=== PATIENT | female | born 1990 ===

== ENCOUNTER 2022-01-03 15:47 | Outpatient (CLI) | payer OTHER, SELFPAY ==
[2022-01-03 21:34] LABS: Free T4 Free Thyroxine* 1.05 ng/dL (0.70-1.85)
== END 2022-01-03 15:48 | disposition home or self-care (01) ==
PROVIDERS: PCP Family Medicine; Visit Provider Family Medicine
DX: E03.9 Hypothyroidism, unspecified (principal)
CPT/HCPCS: 84439; 84443

== ENCOUNTER 2022-07-18 10:21 | Outpatient (CLI) | payer OTHER, SELFPAY ==
[2022-07-18 14:38] LABS: Chlamydia DNA Amplified* NOT DETECTED (No Detected); GC DNA Amplified* NOT DETECTED (No Detected)
== END 2022-07-18 10:22 | disposition home or self-care (01) ==
PROVIDERS: PCP Family Medicine; Visit Provider Registered Nurse
DX: N89.8 Other specified noninflammatory disorders of vagina (principal); R30.0 Dysuria
CPT/HCPCS: 87086; 87210; 87491; 87591

== ENCOUNTER 2022-12-24 08:06 | Outpatient (CLI) | payer SELFPAY | END 2022-12-24 08:07 | disposition home or self-care (01) | LOC: NFLDREF 12-26 13:01 | PROVIDERS: PCP Family Medicine; Referring Provider Family Medicine; Visit Provider Family Medicine | DX: Z00.00 Encounter for general adult medical examination without abnormal findings (principal); E03.9 Hypothyroidism, unspecified; D50.9 Iron deficiency anemia, unspecified; F32.A Depression, unspecified | CPT/HCPCS: 80053; 80061; 84443 ==

== ENCOUNTER 2023-10-01 10:55 | Emergency (ER) | payer OTHER, SELFPAY ==
[2023-10-01 11:21] VITALS: BP 105/65; PULSE 115; RESP 18; TEMP 38.1; O2SAT 98; BMI 26.5
--- NOTE | 2023-10-01 12:45 | ED_ITS ---
HPI - General Adult General Chief complaint: Fever Stated complaint: fever,headache,bodyaches Time Seen by Provider: 10/01/23 11:20 History of Present Illness HPI narrative: headache, fever and body aches x 3 days. last ibuprofen at 0900 33-year-old woman presenting to the emergency department with concern of fever body aches and headache. Sore right neck in particular. Little sore throat. Does recall in later conversation that a friends kid had mono. She was self has been well for about 3 days. She has had a waxing waning fever; saying that it always comes back. Not complaining of abdominal pain and denies dysuria but has had some middle back pain bilaterally along with other body aches. Last took acetaminophen and says that it did not help her feelings. Related Data Previous Rx's Medication Instructions Recorded levothyroxine 100 mcg tablet See Rx Instructions .Route 12/27/22 .COMPLEX #90 tabs amoxicillin 875 mg tablet 875 mg PO BID #16 tabs 10/01/23 prednisone 20 mg tablet 40 mg (2 x 20 mg) PO DAILY #10 tabs 10/01/23 Allergies Allergy/AdvReac Type Severity Reaction Status Date / Time No Known Allergies Allergy Verified 10/01/23 15:40 Review of Systems Status of ROS: Reports: 6 or more systems reviewed and unremarkable except as noted in History and below PFSH PFSH Family History Mother Thyroid disease Maternal Grandmother Thyroid disease Social History Narrative: IUD (intrauterine device) in place- paragard Smoking Status: Never smoker Do you use any of these nicotine containing products: None Exam Narrative: Exam Narrative: Pleasant. NAD. Sounds a little congested in the nasopharynx. Does appear tired. Is swallowing without apparent difficulty. I soreness in the right neck with mild cervical lymphadenopathy. Oropharynx is moist. Mildly enlarged right versus left tonsils with whitish exudate. Moderately pink but not brightly or deeply erythematous. There is no stridor. Lungs are clear. Is sore to palpation of the back musculature in the mid back bilaterally. Not with flank/percussion tenderness. Skin is warm and dry without rash. Const: Vital Signs, click to edit/add: Vital Signs - 24 hr 10/01/23 11:21 10/01/23 13:38 Temperature 100.6 F H 100.6 F H Pulse Rate [Pulse Oximeter] 88 Pulse Rate [Right Pulse Oximeter] 115 H Respiratory Rate 18 16 Blood Pressure [Le ft Arm] 105/65 Blood Pressure [Ri ght Upper Arm] 105/65 Pulse Oximetry 98 96 Oxygen Delivery Me thod Room Air Room Air Documenting provider has reviewed patient's vital signs: yes Course Vital Signs Vital signs: Initial Vital Signs Temperature 100.6 F H 10/01/23 11:21 Temperature Source Temporal Artery Scan 10/01/23 11:21 Pulse Rate 115 H 10/01/23 11:21 Respiratory Rate 18 10/01/23 11:21 Blood Pressure 105/65 10/01/23 11:21 Blood Pressure Mean 78 10/01/23 11:21 Blood Pressure Position Sitting 10/01/23 11:21 Pulse Oximetry 98 10/01/23 11:21 Oxygen Delivery Method Room Air 10/01/23 11:21 Vital Signs Temperature 100.6 F H 10/01/23 11:21 Pulse Rate 115 H 10/01/23 11:21 Respiratory Rate 18 10/01/23 11:21 Blood Pressure 105/65 10/01/23 11:21 Pulse Oximetry 98 10/01/23 11:21 Oxygen Delivery Method Room Air 10/01/23 11:21 Temperature 100.6 F H 10/01/23 13:38 Pulse Rate 88 10/01/23 13:38 Respiratory Rate 16 10/01/23 13:38 Blood Pressure 105/65 10/01/23 13:38 Pulse Oximetry 96 10/01/23 13:38 Oxygen Delivery Method Room Air 10/01/23 13:38 Medications Administered Medications: Discontinued Medications Generic Name Dose Route Start Last Admin Trade Name Freq PRN Reason Stop Dose Admin Acetaminophen 650 mg 10/01/23 13:04 10/01/23 13:30 Acetaminophen 325 Mg Tablet PO 10/01/23 13:05 650 mg ONCE ONE Administration Sodium Chloride 1,000 mls @ 1,000 mls/hr 10/01/23 14:25 10/01/23 14:59 0.9 % Sodium Chloride 1000 Ml IV 10/01/23 15:24 1,000 mls/hr .Q1H ONE Administration Ibuprofen 400 mg 10/01/23 13:04 10/01/23 13:31 Ibuprofen 200 Mg Tablet PO 10/01/23 13:05 400 mg ONCE ONE Administration Ketorolac Tromethamine 15 mg 10/01/23 14:25 10/01/23 14:59 Ketorolac 15 Mg/Ml Inj IVP 10/01/23 14:26 15 mg ONCE ONE Administration Ondansetron HCl 4 mg 10/01/23 13:31 10/01/23 13:35 Ondansetron Odt 4 Mg Tab PO 10/01/23 13:32 4 mg ONCE ONE Administration Medical Decision Making MDM Narrative Medical decision making narrative: Had been triple swabbed initial presentation. Would also screen for strep though I think this is more likely tonsillitis possibly mono though would be somewhat early to test given duration symptoms. Does not have symptoms to the degree that I would correlate with tonsillar abscess or similar. Would like something more for headache. Was given ibuprofen acetaminophen along with Zofran. Triple swab is negative. Follow-up strep test also negative. She is still with headache and would like further treatment. IV is established, given normal saline and is given ketorolac. On re-evaluation is symptom free. Payne test perhaps not unexpectedly is negative. I think too soon to test with a Monospot. Distribution suggests bacterial with a white count elevated at 19.5. Ordered for Rocephin 1 g. Otherwise noted to be anemic with a hemoglobin of 8. Review of records shows December of last year a hemoglobin of 8.3. She reports that use to get I believe iron infusions, but no longer. Will need close follow-up here. Tachycardia improved with hydration. See patient discharge plan for further discussion. Lab Data Lab results reviewed: Yes I reviewed the patient's lab results Labs: Lab Results 10/01/23 10/01/23 10/01/23 Range/Units 12:57 14:50 Unknown WBC 19.46 H (4.50-11.00) K/uL RBC 4.30 (4.00-5.20) m/uL Hgb 8.0 L (12.0-16.0) gm/dL Hct 28.0 L (33.0-51.0) % MCV 65 L (80-100) fL MCH 19 L (26-34) pg MCHC 29 L (32-36) gm/dL RDW Coeff of Bridget 19.7 H (11.5-15.5) % Plt Count 229 (140-440) K/uL Neut % (Auto) 84.1 H (42.0-72.0) % Lymph % (Auto) 9.5 L (20-44) % Payne % (Auto) 5.1 (0.0-11.0) % Eos % (Auto) 0.1 (0.0-7.0) % Baso % (Auto) 0.3 (0.0-3.0) % Neut # (Auto) 16.40 H (1.7-7.0) K/uL Lymph # (Auto) 1.80 (0.90-2.90) K/uL Payne # (Auto) 1.00 H (0.00-0.90) K/UL Eos # (Auto) 0.00 (0.00-0.50) K/uL Baso # (Auto) 0.10 (0.00-0.30) K/uL Abs Immat Gran (auto) 0.20 (0.00-0.30) K/uL Imm/Tot Granulo (auto) 0.9 % Diff Slide Review Acceptable Review (Acceptable) SARS-CoV-2 (PCR) Negative SARS-CoV-2 (Negative) Monoscreen Negative (Negative) Influenza Type A (PCR) Negative PCR FLU A (Negative) Influenza Type B (PCR) Negative PCR FLU B (Negative) RSV (PCR) Negative PCR RSV (Negative) Group A Strep DNA NOT DETECTED (Not Detectd) Discharge Plan Discharge Clinical Impression: Acute tonsillitis, Microcytic anemia, Headache Patient Disposition: Home, Self-Care Condition: Improved Additional Instructions: Stay well-hydrated. Can take up to 800 mg ibuprofen up to 1000 mg of acetaminophen per dose. Sending in prednisone (4 days should be enough prednisone since you got a dose here and you don't need to take any more prednisone/steroid or amoxicillin today) Report rash, increasing difficulty breathing or inability to manage secretions/swallow, inability to control fever, severe pain. Please call to schedule soon as possible with your primary care provider follow- up for this anemia and to make a plan. Prescriptions: New prednisone 20 mg tablet 40 mg PO DAILY Qty: 10 0RF amoxicillin 875 mg tablet 875 mg PO BID Qty: 16 0RF No Action levothyroxine 100 mcg tablet See Rx Instructions .ROUTE .COMPLEX Qty: 90 3RF Dose Instruction: TAKE 1 TABLET BY MOUTH EVERY DAY Rx Instructions: TAKE 1 TABLET BY MOUTH EVERY DAY Follow Up/Referrals: Brook Martinez MD [Primary Care Provider] - Stand Alone Forms: ServiceFrame Info Instructions
[2023-10-01 12:49] LABS: PCR FLU A Negative PCR FLU A (Negative); PCR FLU B Negative PCR FLU B (Negative); PCR RSV Negative PCR RSV (Negative); SARS PCR* Negative SARS-CoV-2 (Negative)
[2023-10-01] MEDS: ACETAMINOPHEN 325 MG TABLET 650 MG PO (13:30)
[2023-10-01] MEDS: IBUPROFEN 200 MG TABLET 400 MG PO (13:31)
[2023-10-01] MEDS: ONDANSETRON ODT 4 MG TAB PO (13:35)
[2023-10-01 13:38] VITALS: BP 105/65; PULSE 88; RESP 16; TEMP 38.1; O2SAT 96
[2023-10-01 14:04] LABS: Strep A DNA Probe* NOT DETECTED (Not Detectd)
[2023-10-01] MEDS: 0.9 % SODIUM CHLORIDE 1000 ml 1,000 ML IV (14:59)
[2023-10-01] MEDS: KETOROLAC 15 MG/ML inj IVP (14:59)
[2023-10-01 15:07] LABS: Basophils Percent Auto 0.3 % (0.0-3.0); Eosinophils Percent Auto 0.1 % (0.0-7.0); Immature Granulocytes Pct Auto 0.9 %; Lymphocytes Percent Auto 9.5 % (20-44); Mean Corpuscular HGB Conc 29 gm/dL (32-36); Mean Corpuscular Hemoglobin 19 pg (26-34); Mean Corpuscular Volume 65 fL (80-100); Monocytes Percent Auto 5.1 % (0.0-11.0); Neutrophils Percent Auto 84.1 % (42.0-72.0); Platelet Count* 229 K/uL (140-440); RDW Coefficient of Variation % 19.7 % (11.5-15.5); White Blood Count* 19.46 K/uL (4.50-11.00)
[2023-10-01 15:13] LABS: Slide Review Reflex Yes
[2023-10-01 16:00] VITALS: BP 104/76; PULSE 96; RESP 111; TEMP 37.6; O2SAT 97
[2023-10-01 16:02] LABS: Mono Screen* Negative (Negative)
[2023-10-01 16:13] LABS: Slide Review Acceptable Review (Acceptable)
[2023-10-01] MEDS: predniSONE 20 MG TABLET 60 MG PO (17:16)
[2023-10-01] MEDS: cefTRIAXone 1 GM in 0.9 % SODIUM CHLORIDE Mini-bag 100 ML IVPB (17:16)
== END 2023-10-01 17:51 | disposition home or self-care (01) ==
PROVIDERS: Emergency Provider Family Medicine; PCP Family Medicine
DX: J03.90 Acute tonsillitis, unspecified (principal); D50.8 Other iron deficiency anemias; R51.9 Headache, unspecified
CPT/HCPCS: 36415; 85025; 86308; 87631; 87651; 96365; 96375; 99284; A9270; J0696; J1885; J7030; J7512

== ENCOUNTER 2024-01-30 11:54 | Outpatient (CLI) | payer OTHER, SELFPAY ==
[2024-01-30 23:28] LABS: GC DNA Amplified* NOT DETECTED (No Detected)
[2024-01-30 23:52] LABS: Chlamydia DNA Amplified* DETECTED (No Detected)
== END 2024-01-30 11:55 | disposition home or self-care (01) ==
LOC: FRMREF 11:54
PROVIDERS: PCP Family Medicine; Visit Provider Registered Nurse
DX: N89.8 Other specified noninflammatory disorders of vagina (principal); Z11.3 Encounter for screening for infections with a predominantly sexual mode of transmission
CPT/HCPCS: 87491; 87591

== ENCOUNTER 2024-02-12 11:17 | Outpatient (CLI) | payer OTHER, SELFPAY | END 2024-02-12 11:18 | disposition home or self-care (01) | LOC: FRMREF 11:19 | PROVIDERS: PCP Family Medicine; Visit Provider Physician Assistant Medical | DX: E03.8 Other specified hypothyroidism (principal); E06.3 Autoimmune thyroiditis | CPT/HCPCS: 84439; 84443 ==